=== PATIENT | male | born 1960 | race Caucasian/White ===

== ENCOUNTER → 2018-07-01 | Outpatient (CLI) | payer OTHER ==
--- NOTE | 2018-07-01 11:47 | RAD ---
Renal ultrasound, 07/01/2018: HISTORY: Renal failure The right kidney measures 12.8 cm in length while the left kidney measures 11.5 cm. There is a 2.5 cm simple cyst in the medial aspect of the right kidney. No other renal mass is seen. There is no evidence of hydronephrosis. The renal parenchymal echogenicity is within normal limits. Limited views of urinary bladder are unremarkable. There is only tiny amount of residual urine in the bladder post void. IMPRESSION: 1. Small right renal cyst. 2. The kidneys are otherwise unremarkable. Electronically signed by: Adriano Hinojosa MD (07/01/2018 11:44 AM) [facility]
== END | disposition home or self-care (01) ==
LOC: US 11:00
PROVIDERS: ATTEND Internal Medicine Nephrology
DX: N28.1 Cyst of kidney, acquired (principal)
CPT/HCPCS: 76770